=== PATIENT | male | born 1990 | race Caucasian/White ===

== ENCOUNTER → 2016-12-09 | Emergency (ER) | payer SELFPAY ==
[~2016-12-09] VITALS: Ht 162.6 cm; Wt 79.4 kg
[~2016-12-09] MED LIST: ACYC800T PO; ALBU8.5H4 IH; CYCL10TA9 PO; DOXY100C2 PO; IBP800T PO; LIDOCAINE/EPI 1%-1:100,000 (XYLOCAINE) 20ML INJ STA; METH4TAB PO; PRM5C60 TOP; TETANUS,DIPTH,PERTUSS P/F (BOOSTRIX) 0.5 ML VIAL IM STA
--- NOTE | 2016-12-09 23:20 | ED Upper Extremity ---
General Stated Complaint: LAC L WRIST Source: patient Exam Limitations: no limitations History of Present Illness Time seen by provider: 23:10 Initial Comments Here with complaint of laceration to the left wrist. He states that he was playing with a knife that is a large black titanium knife and was tossing and air. He tried to catch it and it cut his wrist. Occurred approximately one hour prior to arrival. Has approximately 5 cm laceration to the left wrist. States that this was definitely accidental and was not an attempt to hurt himself. Denies other injury or concerns. Unknown last tetanus shot. Onset: just prior to arrival Severity: moderate Pain/Injury Location: left wrist Method of Injury: incised Modifying Factors: Improves With Immobilization, Worse With Movement Allergies and Home Medications Allergies Coded Allergies: No Known Drug Allergies (Unverified , 08/12/10) Constitutional: see HPI, No chills, No fever Respiratory: no symptoms reported Cardiovascular: no symptoms reported Musculoskeletal: no symptoms reported Skin: see HPI, lesions, No rash Psychiatric/Neurological: Denies Numbness, Denies Paresthesia, Denies Tingling , Denies Weakness Past Qpmoisf-Bknert-Lvlusl Hx Patient Social History Alcohol Use: Denies Use Recreational Drug Use: No Smoking Status: Never a Smoker Recent Foreign Travel: No Contact w/Someone Who Travel: No Immunizations Up To Date Date of Influenza Vaccine: Apr 22, 2014 Seasonal Allergies Seasonal Allergies: No Surgeries HX Surgeries: Yes (TUBES IN EARS) Surgeries: Ear Surgery Respiratory Hx Respiratory Disorders: No Cardiovascular Hx Cardiac Disorders: No Neurological Hx Neurological Disorders: Yes (LAST SEIZURE IN 2007) Neurological Disorders: Seizure Disorder Reproductive System Hx Reproductive Disorders: No Sexually Transmitted Disease: No HIV/AIDS: No Genitourinary Hx Genitourinary Disorders: No Gastrointestinal Hx Gastrointestinal Disorders: No Musculoskeletal Hx Musculoskeletal Disorders: No Endocrine Hx Endocrine Disorders: No HEENT HX ENT Disorders: No Cancer Hx Cancer: No Psychosocial Hx Psychiatric Problems: Yes Behavioral Health Disorders: ADD/ADHD, Anxiety, Bipolar, Schizophrenia, Depression Integumentary HX Skin/Integumentary Disorder: No Blood Transfusions Hx Blood Disorders: No Adverse Reaction to a Blood Tr: No Reviewed Nursing Assessment Reviewed/Agree w Nursing PMH: Yes Family Medical History Significant Family History: No Pertinent Family Hx Physical Exam Vital Signs Vital Sign - Last 12Hours 12/09/16 23:29 Temp 98.7 Pulse 73 Resp 14 B/P (MAP) 115/85 Pulse Ox 98 O2 Delivery Room Air Capillary Refill : General Appearance: WD/WN, no apparent distress Cardiovascular: regular rate, rhythm, no murmur Respiratory: lungs clear, normal breath sounds Wrist: Yes normal ROM, Yes pain, Yes soft tissue tenderness (5 cm laceration to the volar aspect of the left wrist horizontal placed.) Hand: normal inspection, no evidence of injury, normal ROM, Left Neurologic/Tendon: normal sensation, normal motor functions, normal tendon functions Neurologic/Psychiatric: alert, oriented x 3 Skin: warm/dry, other (laceration as above.) Laceration Repair : Wound Location: Upper Extremities Other Wound Location Left wrist Wound Length (cm): 5 Wound's Depth, Shape: superficial Wound Explored: contaminated Irrigated w/ Saline (ccs): 50 Betadine Prep?: Yes (Anniiclemoises) Anesthesia: Lidocaine w/ Epi Volume Anesthetic (ccs): 6 Wound Debrided: minimal Suture: Prolene Suture Size: 4-0 Number of Sutures: 8 Layer Closure?: 1 Number Deep Layer Sutures: 0 Sterile Dressing Applied?: Yes Progress Tolerated procedure well. No complications. Covered with antibiotic ointment and dressing. Progress/Results/Core Measures Results/Orders My Orders Orders - NICOLE CHISHOLM MD Dipht,Shakira(Johnll),Tet Adult (Boostrix (12/09/16 23:14) Lidocaine/Epi 1% 1:100,000 (Xylocaine /E (12/09/16 23:14) Vital Signs/I&O Vital Sign - Last 12Hours 12/09/16 23:29 Temp 98.7 Pulse 73 Resp 14 B/P (MAP) 115/85 Pulse Ox 98 O2 Delivery Room Air Progress Note : Progress Note Seen and evaluated. Tetanus updated. Laceration repair by me. Discharged home with return precautions. Patient verbalize understanding instructions and agreement with plan. Again states that this was not self-inflicted an attempt to harm self it was accidental. Departure Impression Impression: Primary Impression: Laceration of left wrist Qualified Codes: S61.512A - Laceration without foreign body of left wrist, initial encounter Disposition: 01 HOME, SELF-CARE Condition: Improved Departure-Patient Inst. Decision time for Depature: 23:18 Referrals: NO,LOCAL PHYSICIAN (PCP/Family) Primary Care Physician Patient Instructions: Laceration Repair With Stitches (DC) Add. Discharge Instructions: Sutures out in 10-14 days. You may use antibiotic ointment and dressing twice daily over wound. Cleaned wound twice daily with soap and water but do not scrub vigorously. Pat wound dry. Return for worse pain, fever, red streaks up the arm, foul-smelling drainage or other concerns as needed. Do not soak wound in any body of water such as pool, tub or Lin. NICOLE CHISHOLM MD December 09, 2016 23:20
[2016-12-09 23:42] VITALS: BP 126/89
== END | disposition home or self-care (01) ==
LOC: EDUNIT# 23:05 → ER 23:09
DX: S61.512A Laceration without foreign body of left wrist, initial encounter (principal); Z23 Encounter for immunization; W26.0XXA Contact with knife, initial encounter; Y92.019 Unspecified place in single-family (private) house as the place of occurrence of the external cause; Y99.8 Other external cause status
CPT/HCPCS: 12032; 90471; 90715

== ENCOUNTER 2016-12-19 18:42 | Emergency (ER) | payer SELFPAY ==
[~2016-12-19] VITALS: Ht 162.6 cm; Wt 79.4 kg
[~2016-12-19 18:42] MED LIST changes: -LIDOCAINE/EPI 1%-1:100,000 (XYLOCAINE) 20ML INJ STA; -TETANUS,DIPTH,PERTUSS P/F (BOOSTRIX) 0.5 ML VIAL IM STA
[2016-12-19 19:16] VITALS: BP 101/73
== END 2016-12-19 19:16 | disposition home or self-care (01) ==
LOC: EDUNIT# 18:42 → ER 18:43
DX: S61.512D Laceration without foreign body of left wrist, subsequent encounter (principal)

== ENCOUNTER 2018-09-26 16:29 | Emergency (ER) | payer SELFPAY ==
[~2018-09-26] VITALS: Ht 165.1 cm; Wt 95.3 kg
[2018-09-26] MEDS ORDERED: IBUPROFEN 800 MG (MOTRIN) TAB PO STA (17:40)
--- NOTE | 2018-09-26 18:12 | ED EENT ---
History of Present Illness General Chief Complaint: Oral/Throat Problems Stated Complaint: THROAT SWELLING Nursing Triage Note: PT PRESENTS TO ED WITH COMPLAINTS OF SORE THROAT, DIFFICULTY SWALLOWING, CHILLS , AND MALAISE X 2 DAYS History of Present Illness Date Seen by Provider: Sep 26, 2018 Time Seen by Provider: 17:05 Initial Comments 28-year-old male presents for sore throat and difficulty swallowing. He has not checked his temperature but reports feeling hot and chilling on occasion today. He took Tylenol approximately 2 hours ago. He reports 2 household members having strep. He did not have an influenza vaccine this year. Patient taking ice chips with no difficulty swallowing. Timing/Duration: intermittent, yesterday Severity: moderate Location: throat Prearrival Treatment: over the counter meds Associated Symptoms: cough, fever, malaise, nasal congestion/drainage; No poor fluid intake; poor solids intake, sore throat Allergies and Home Medications Allergies Coded Allergies: No Known Drug Allergies (Unverified , 08/12/10) Home Medications Prednisone 20 Mg Tab, 60 MG PO DAILY Prescribed by: LELAND FARRIS on 09/26/18 1813 Patient Home Medication List Home Medication List Reviewed: Yes Review of Systems Review of Systems Constitutional: no symptoms reported, see HPI Mouth: see HPI Throat: see HPI, pain, painful swallowing; denies difficulty with fluids Respiratory: see HPI, cough All Other Systems Reviewed Negative Unless Noted: Yes Past Xykzwpz-Slxuqy-Tvvtal Hx Past Med/Social Hx: Reviewed Nursing Past Med/Soc Hx Patient Social History Alcohol Use: Denies Use Recreational Drug Use: No Smoking Status: Current Everyday Smoker Recent Foreign Travel: No Contact w/Someone Who Travel: No Recent Infectious Disease Expo: No Recent Hopitalizations: No Physical Abuse: No Sexual Abuse: No Mistreated: No Fear: No Immunizations Up To Date Date of Influenza Vaccine: Apr 22, 2014 Seasonal Allergies Seasonal Allergies: No Past Medical History Surgeries: Yes (TUBES IN EARS) Ear Surgery Respiratory: No Cardiac: No Neurological: Yes (LAST SEIZURE IN 2007) Seizure Disorder Reproductive Disorders: No Sexually Transmitted Disease: No HIV/AIDS: No Genitourinary: No Gastrointestinal: No Musculoskeletal: No Endocrine: No Cancer: No Psychosocial: Yes ADD/ADHD, Anxiety, Bipolar, Schizophrenia, Depression Integumentary: No Blood Disorders: No Adverse Reaction/Blood Tranf: No Family Medical History No Pertinent Family Hx Physical Exam Vital Signs Vital Signs - First Documented 09/26/18 16:59 Temp 99.3 Pulse 116 Resp 20 B/P (MAP) 141/91 (108) Pulse Ox 97 Height, Weight, BMI Height: 5'5.00" Weight: 210lbs. oz. [id number]; 28.12 BMI Method:Stated General Appearance: WD/WN, no apparent distress Eyes: bilateral eye normal inspection, bilateral eye PERRL, bilateral eye EOMI Ears: bilateral ear auricle normal, bilateral ear canal normal, bilateral ear TM normal Nose: normal inspection; No active bleeding, No discharge Mouth/Throat: No dental tenderness, No mandibular swelling, No maxillary swelling, No tongue swollen, No tonsillar exudate, No tonsillar swelling; uvula swelling; No voice changes Neck: full range of motion, supple, lymphadenopathy (R), lymphadenopathy (L) Cardiovascular: normal peripheral pulses, regular rate, rhythm, no murmur Respiratory: chest non-tender, lungs clear, normal breath sounds Gastrointestinal: normal bowel sounds, non tender, soft Neurologic/Psychiatric: no motor/sensory deficits, alert, normal mood/affect, oriented x 3 Skin: normal color, warm/dry Procedures/Interventions Suture Size: 4-0 Progress/Results/Core Measures Results/Orders Lab Results Laboratory Tests Test 09/26/18 17:01 Range/Units Group A Streptococcus Screen NEGATIVE NEGATIVE Micro Results Microbiology 09/26/18 Influenza Types A,B Antigen (SCARLET) - Final, Complete My Orders Orders - LELAND FARRIS Rapid Strep A Screen (09/26/18 16:57) Influenza A And B Antigens (09/26/18 17:09) Ibuprofen Tablet (Motrin Tablet) (09/26/18 17:40) Vital Signs/I&O 09/26/18 09/26/18 16:59 18:36 Temp 99.3 99.0 Pulse 116 78 Resp 20 20 B/P (MAP) 141/91 (108) 123/78 (93) Pulse Ox 97 98 Blood Pressure Mean: 108 Departure Impression Primary Impression: Viral upper respiratory illness Disposition: 01 HOME, SELF-CARE Condition: Improved Departure-Patient Inst. Decision time for Depature: 18:00 Referrals: [facility] (PCP/Family) Primary Care Physician Patient Instructions: Viral Upper Respiratory Infection, Adult (DC) Add. Discharge Instructions: Alternate between Tylenol 650 mg and ibuprofen 600 mg every 4 hours for pain or fever. Gargle warm water with salt every 2-4 hours. Take prednisone as prescribed. Follow-up at counts include [facility] beds at the [facility] if symptoms are not improving or worsen. Increase the amount of fluids you are taking, hot or cold as tolerated. Return to emergency department for fever greater than 101 not relieved by Tylenol and ibuprofen, difficulty breathing, inability to swallow liquids or solids, or new problems. All discharge instructions reviewed with patient and/or family. Voiced understanding. Scripts Prednisone (Prednisone) 20 Mg Tab 60 MG PO DAILY, #9 TAB 0 Refills Prov: LELAND FARRIS 09/26/18 Work/School Note: Work Release Form Date Seen in the Emergency Department: Sep 26, 2018 Return to Work: Sep 26, 2018 Other Restrictions Listed Below: Patient was in ER [id number] LELAND FARRIS Sep 26, 2018 18:12
[2018-09-26] MEDS ORDERED: PRD20T PO (18:13)
[2018-09-26 18:36] VITALS: BP 123/78
== END 2018-09-26 18:36 | disposition home or self-care (01) ==
LOC: EDUNIT# 16:29 → ER 16:30
DX: J06.9 Acute upper respiratory infection, unspecified (principal); G40.909 Epilepsy, unspecified, not intractable, without status epilepticus; F90.9 Attention-deficit hyperactivity disorder, unspecified type; F41.9 Anxiety disorder, unspecified; F31.9 Bipolar disorder, unspecified; F20.9 Schizophrenia, unspecified; F98.8 Other specified behavioral and emotional disorders with onset usually occurring in childhood and adolescence; F17.200 Nicotine dependence, unspecified, uncomplicated; Z79.52 Long term (current) use of systemic steroids; Z98.890 Other specified postprocedural states; Z96.22 Myringotomy tube(s) status; Z98.84 Bariatric surgery status
CPT/HCPCS: 87430; 87804

== ENCOUNTER 2019-02-04 14:58 | Emergency (ER) | payer SELFPAY ==
[~2019-02-04] VITALS: Ht 165.1 cm; Wt 95.3 kg
[~2019-02-04 14:58] MED LIST changes: +PRD20T PO
[2019-02-04 15:22] LABS: BASOPHILS % (AUTO) 0 % (0-10); EOSINOPHILS # (AUTO) 0.3 10^3/uL (0.0-0.3); EOSINOPHILS % (AUTO) 4 % (0-10); HEMATOCRIT 43 % (40-54); HEMOGLOBIN 14.8 G/DL (13.3-17.7); LYMPHOCYTES # (AUTO) 2.4 X 10^3 (1.0-4.0); LYMPHOCYTES % (AUTO) 33 % (12-44); MEAN CORPUSCULAR HEMOGLOBIN 29 PG (25-34); MEAN CORPUSCULAR HGB CONC 34 G/DL (32-36); MEAN CORPUSCULAR VOLUME 84 FL (80-99); MEAN PLATELET VOLUME 10.2 FL (7.4-10.4); MONOCYTES # (AUTO) 0.6 X 10^3 (0.0-1.0); MONOCYTES % (AUTO) 9 % (0-12); NEUTROPHILS # (AUTO) 3.9 X 10^3 (1.8-7.8); NEUTROPHILS % (AUTO) 54 % (42-75); PLATELET COUNT 331 10^3/uL (130-400); RED CELL DISTRIBUTION WIDTH 13.2 % (10.0-14.5); WHITE BLOOD COUNT 7.2 10^3/uL (4.3-11.0)
[2019-02-04] MEDS ORDERED: NS IV 1000 ML 1,000 ML IV SCH (15:30)
[2019-02-04] MEDS ORDERED: KETAMINE HCL 100 MG/ML 5 ML VIAL IM ONE (15:30)
--- NOTE | 2019-02-04 15:31 | ED General ---
General Chief Complaint: Dizziness/Syncope Stated Complaint: N/V Nursing Triage Note: pt is homeless and is living [address] for 2.5 weeks. Pt has been dizzy, light headed and "not feeling himself" for 4-5 days. Pt vomiting et diarrhea. Pt also c/o [facility] Nursing Sepsis Screen: No Definite Risk Source of Information: Patient Exam Limitations: No Limitations History of Present Illness Date Seen by Provider: Feb 04, 2019 Time Seen by Provider: 15:30 Initial Comments To ER with reports of dizziness lightheadedness, vomiting diarrhea and abdominal cramping. Currently homeless. Symptoms present for 4-5 days. Timing/Duration: 4-5 Days Severity: Moderate Associated Systoms: Nausea/Vomiting Allergies and Home Medications Allergies Coded Allergies: No Known Drug Allergies (Unverified , 08/12/10) Home Medications Prednisone 20 Mg Tab, 60 MG PO DAILY Prescribed by: LELAND FARRIS on 09/26/18 1813 Patient Home Medication List Home Medication List Reviewed: Yes Review of Systems Review of Systems Constitutional: see HPI EENTM: see HPI Respiratory: no symptoms reported Cardiovascular: no symptoms reported Gastrointestinal: abdominal pain (cramping preceding the diarrhea, pain resolves after episode of diarrhea), diarrhea Skin: no symptoms reported Psychiatric/Neurological: No Symptoms Reported Hematologic/Lymphatic: No Symptoms Reported Past Qqyrpcj-Eqyixd-Ogdaqh Hx Patient Social History Alcohol Use: Denies Use Recreational Drug Use: No Recent Foreign Travel: No Contact w/Someone Who Travel: No Recent Infectious Disease Expo: No Recent Hopitalizations: No Physical Abuse: No Sexual Abuse: No Mistreated: No Fear: No Immunizations Up To Date Date of Influenza Vaccine: Apr 22, 2014 Seasonal Allergies Seasonal Allergies: No Past Medical History Surgeries: Yes (TUBES IN EARS) Ear Surgery Respiratory: No Cardiac: No Neurological: Yes (LAST SEIZURE IN 2007) Seizure Disorder Reproductive Disorders: No Sexually Transmitted Disease: No HIV/AIDS: No Genitourinary: No Gastrointestinal: No Musculoskeletal: No Endocrine: No Cancer: No Psychosocial: Yes ADD/ADHD, Anxiety, Bipolar, Schizophrenia, Depression Integumentary: No Blood Disorders: No Adverse Reaction/Blood Tranf: No Family Medical History No Pertinent Family Hx Physical Exam Vital Signs Vital Signs - First Documented 02/04/19 15:02 Temp 98.5 Resp 20 Pulse Ox 98 O2 Delivery Room Air Capillary Refill : Less Than 3 Seconds Height, Weight, BMI Height: 5'5.00" Weight: 210lbs. oz. 95.501063xx; 28.12 BMI Method:Stated General Appearance: No Apparent Distress, WD/WN Eyes: Bilateral Eye Normal Inspection, Bilateral Eye PERRL, Bilateral Eye EOMI HEENT: PERRL/EOMI, TMs Normal Neck: Full Range of Motion, Normal Inspection Respiratory: No Accessory Muscle Use, No Respiratory Distress Cardiovascular: Regular Rate, Rhythm, Normal Peripheral Pulses Gastrointestinal: Normal Bowel Sounds, Non Tender, Soft Extremity: Normal Capillary Refill, Normal Inspection Neurologic/Psychiatric: Alert, Oriented x3, No Motor/Sensory Deficits Skin: Normal Color, Warm/Dry Procedures/Interventions Suture Size: 4-0 Progress/Results/Core Measures Suspected Sepsis Recent Fever Within 48 Hours: No Infection Criteria Present: None New/Unexplained Altered Menta: No Sepsis Screen: No Definite Risk SIRS Temperature:98.5 Pulse: Respiratory Rate: 20 Laboratory Tests 02/04/19 15:15: White Blood Count 7.2 Blood Pressure / Mean: Laboratory Tests 02/04/19 15:15: Creatinine 0.86, Platelet Count 331, Total Bilirubin 0.6 Results/Orders Lab Results Laboratory Tests Test 02/04/19 15:15 Range/Units White Blood Count 7.2 4.3-11.0 10^3/uL Red Blood Count 5.18 4.35-5.85 10^6/uL Hemoglobin 14.8 13.3-17.7 G/DL Hematocrit 43 40-54 % Mean Corpuscular Volume 84 80-99 FL Mean Corpuscular Hemoglobin 29 25-34 PG Mean Corpuscular Hemoglobin Concent 34 32-36 G/DL Red Cell Distribution Width 13.2 10.0-14.5 % Platelet Count 331 130-400 10^3/uL Mean Platelet Volume 10.2 7.4-10.4 FL Neutrophils (%) (Auto) 54 42-75 % Lymphocytes (%) (Auto) 33 12-44 % Monocytes (%) (Auto) 9 0-12 % Eosinophils (%) (Auto) 4 0-10 % Basophils (%) (Auto) 0 0-10 % Neutrophils # (Auto) 3.9 1.8-7.8 X 10^3 Lymphocytes # (Auto) 2.4 1.0-4.0 X 10^3 Monocytes # (Auto) 0.6 0.0-1.0 X 10^3 Eosinophils # (Auto) 0.3 0.0-0.3 10^3/uL Basophils # (Auto) 0.0 0.0-0.1 10^3/uL Sodium Level 138 135-145 MMOL/L Potassium Level 4.1 3.6-5.0 MMOL/L Chloride Level 102 98-107 MMOL/L Carbon Dioxide Level 26 21-32 MMOL/L Anion Gap 10 5-14 MMOL/L Blood Urea Nitrogen 10 7-18 MG/DL Creatinine 0.86 0.60-1.30 MG/DL Estimat Glomerular Filtration Rate > 60 BUN/Creatinine Ratio 12 Glucose Level 103 70-105 MG/DL Calcium Level 9.8 8.5-10.1 MG/DL Corrected Calcium 8.5-10.1 MG/DL Total Bilirubin 0.6 0.1-1.0 MG/DL Aspartate Amino Transf (AST/SGOT) 20 5-34 U/L Alanine Aminotransferase (ALT/SGPT) 15 0-55 U/L Alkaline Phosphatase 125 40-136 U/L Total Protein 7.7 6.4-8.2 GM/DL Albumin 4.6 H 3.2-4.5 GM/DL My Orders Orders - DAMIEN PARKER [employer] Cbc With Automated Diff (02/04/19 15:16) Comprehensive Metabolic Panel (02/04/19 15:16) Ua Culture If Indicated (02/04/19 15:16) Ed Iv/Invasive Line Start (02/04/19 15:16) Drug Screen Stat (Urine) (02/04/19 15:16) Ns Iv 1000 Ml (Sodium Chloride 0.9%) (02/04/19 15:30) Ketamine Injection (Ketalar Injection) (02/04/19 15:30) Hyoscyamine Sl Tablet (Levsin Sl Tablet) (02/04/19 16:00) Ketorolac Injection (Toradol Injection) (02/04/19 16:00) Medications Given in ED Current Medications Medications Dose Ordered Sig/Sara Route Start Time Stop Time Status Last Admin Dose Admin Hyoscyamine Sulfate 0.25 mg ONCE ONCE PO 02/04/19 16:00 02/04/19 16:01 DC 02/04/19 17:02 0.25 MG Ketorolac Tromethamine 30 mg ONCE ONCE IVP 02/04/19 16:00 02/04/19 16:01 DC 02/04/19 17:02 30 MG Vital Signs/I&O 02/04/19 15:02 Temp 98.5 Resp 20 B/P (MAP) Pulse Ox 98 O2 Delivery Room Air Capillary Refill : Less Than 3 Seconds Departure Communication (Admissions) Patient states that he needs to leave so his can eat at the [employer] Impression Primary Impression: Weakness Additional Impression: Diarrhea Disposition: HOME, SELF-CARE Condition: Stable Admissions Decision to Admit Reason: Admit from ER (General) (What) Departure-Patient Inst. Decision time for Depature: 17:48 Referrals: [facility] (PCP/Family) Primary Care Physician Patient Instructions: Generalized Weakness DAMIEN PARKER APRN Feb 04, 2019 15:31
[2019-02-04 15:44] LABS: ALANINE AMINOTRANSFERASE 15 U/L (0-55); ALBUMIN 4.6 GM/DL (3.2-4.5); ALKALINE PHOSPHATASE 125 U/L (40-136); BILIRUBIN,TOTAL 0.6 MG/DL (0.1-1.0); BUN/CREATININE RATIO 12; CALCIUM 9.8 MG/DL (8.5-10.1); CARBON DIOXIDE 26 MMOL/L (21-32); CHLORIDE 102 MMOL/L (98-107); CREATININE SERUM 0.86 MG/DL (0.60-1.30); GFR ESTIMATED > 60; GLUCOSE 103 MG/DL (70-105); POTASSIUM 4.1 MMOL/L (3.6-5.0); SODIUM 138 MMOL/L (135-145); TOTAL PROTEIN 7.7 GM/DL (6.4-8.2)
[2019-02-04] MEDS ORDERED: KETOROLAC 30 MG/ML VIAL IVP ONE (16:00)
[2019-02-04] MEDS ORDERED: HYOSCYAMINE 0.125 MG (LEVSIN) TAB PO ONE (16:00)
[2019-02-04 17:52] LABS: BILIRUBIN,URINE NEGATIVE (NEGATIVE); COLOR,URINE YELLOW; GLUCOSE, URINE (UA) NEGATIVE (NEGATIVE); KETONES,URINE 3+ (NEGATIVE); LEUKOCYTE ESTERASE ,URINE NEGATIVE (NEGATIVE); NITRITE,URINE NEGATIVE (NEGATIVE); PH,URINE 6 (5-9); PROTEIN,URINE NEGATIVE (NEGATIVE); UROBILINOGEN,URINE 4 MG/DL (NORMAL)
[2019-02-04 17:54] VITALS: BP 122/94
[2019-02-04 17:56] LABS: CLARITY,URINE SL CLOUDY
[2019-02-04 17:59] LABS: AMORPHOUS SEDIMENT,UR FEW AMOR URATES /LPF; BACTERIA,URINE TRACE /HPF; CALCIUM OXALATE CRYSTALS,UR RARE /LPF; HYALINE CASTS, URINE 0-2 /LPF; RBC,URINE 0-2 /HPF; SQUAMOUS EPITHELIAL CELL,UR RARE /HPF
[2019-02-04 18:03] LABS: AMPHETAMINE SCREEN, URINE POSITIVE (NEGATIVE); BARBITURATE SCREEN URINE NEGATIVE (NEGATIVE); BENZODIAZEPINES SCREEN URINE NEGATIVE (NEGATIVE); CANNABINOID SCREEN, URINE NEGATIVE (NEGATIVE); COCAINE SCREEN URINE NEGATIVE (NEGATIVE); METHADONE STAT NEGATIVE (NEGATIVE); METHAMPHETAMINE SCREEN URINE S NEGATIVE (NEGATIVE); OPIATE SCREEN URINE NEGATIVE (NEGATIVE); OXYCODONE STAT NEGATIVE (NEGATIVE); PROPOXYPHENE STAT NEGATIVE (NEGATIVE); TRICYCLIC ANTIDEPRESSANTS SCRE NEGATIVE (NEGATIVE)
== END 2019-02-04 17:56 | disposition home or self-care (01) ==
LOC: EDUNIT# 14:58 → ER 14:59
DX: R53.1 Weakness (principal); R19.7 Diarrhea, unspecified; G40.909 Epilepsy, unspecified, not intractable, without status epilepticus; F20.9 Schizophrenia, unspecified; F90.9 Attention-deficit hyperactivity disorder, unspecified type; F31.9 Bipolar disorder, unspecified; F41.9 Anxiety disorder, unspecified
CPT/HCPCS: 36415; 80053; 80306; 81000; 85025; 96361; 96374